=== PATIENT | female | born 2000 | race Caucasian/White ===

== ENCOUNTER 2019-02-03 08:41 | Inpatient (IN) ==
[2019-02-03] MEDS ORDERED: Naloxone 0.4 MG/ML INJ IVP PRN (08:52)
[2019-02-03] MEDS ORDERED: *HR* HYDROcodone/Acet 5/325 mg TABLET PO PRN (08:53)
[2019-02-03] MEDS ORDERED: Acetaminophen 325 MG TABLET PO PRN (08:53)
[2019-02-03] MEDS ORDERED: Rho Immune Globulin 1,500 UNIT SYRINGE IM PRN (08:53)
[2019-02-03] MEDS ORDERED: Measles/Mumps/Rubella Vacc 0.5 ML VIAL SQ PRN (08:53)
[2019-02-03] MEDS ORDERED: Lanolin 7 G OINT...G. TP PRN (08:53)
[2019-02-03] MEDS ORDERED: Benzocaine/Menthol 56 GM AEROSOL SPRAY TP PRN (08:53)
[2019-02-03] MEDS ORDERED: Prenatal Vit/FA 1 EACH TABLET PO SCH (09:00)
[2019-02-03] MEDS ORDERED: Oxytocin 20 units/ LR 1000 mL 20 UNIT/1,000 ML BAG IVC SCH (09:00)
[2019-02-03 10:23] LABS: Amphetamine Screen,Urine Negative ng/mL (Cutoff=1000); Barbiturate Screen,Urine Negative ng/mL (Cutoff=200); Benzodiazepines Screen,Urine Negative ng/mL (Cutoff=200); Cannabinoid Screen,Urine Negative ng/mL (Cutoff = 50); Cocaine Screen,Urine Negative ng/mL (Cutoff= 300); Opiate Screen,Urine Negative ng/mL (Cutoff=300); Phencyclidine Screen,Urine Negative ng/mL (Cutoff=25)
[2019-02-03] MEDS: Ibuprofen 600 MG TABLET PO PRN ×2 (10:55→22:15)
[2019-02-04 05:48] LABS: Basophils % 0.3 %; Eosinophils # 0.1 K/mcL (0.0-0.6); Eosinophils % 1.1 %; Hematocrit 29.3 % (35.3-44.9); Hemoglobin 10.3 g/dL (11.5-15.4); Immature Granulocytes % 0.4 % (0-4); Lymphocytes # 3.8 K/mcL (0.6-4.6); Lymphocytes % 30.8 %; Mean Corpuscular HGB Conc 35.2 g/dL (31.6-35.5); Mean Corpuscular Hemoglobin 30.9 pg (28.0-33.3); Mean Platelet Volume 11.4 fL (9.4-12.4); Monocytes # 0.9 K/mcL (0.0-1.3); Monocytes % 6.8 %; Neutrophils # 7.5 K/mcL (1.6-8.9); Platelet Count 162 K/mcL (140-400); Red Blood Count 3.33 M/mcL (3.82-4.97); Segmented Neutrophils % 60.6 %; White Blood Count 12.4 K/mcL (4.3-11.1)
[2019-02-04] MEDS: Ibuprofen 600 MG TABLET PO PRN (08:03)
[2019-02-04 09:10] VITALS: BP 100/66
== END 2019-02-04 10:58 | disposition home or self-care (01) | DRG 776 ==
LOC: 1NENULAB 08:41 → 1NENUOBS 15:32
PROVIDERS: ADMIT Advanced Practice Midwife; ATTEND Advanced Practice Midwife